=== PATIENT | female | born 1955 | race Caucasian/White ===

== ENCOUNTER 2023-10-06 08:13 | Day surgery (SDC) | payer BC, MEDICAID ==
[2023-10-01 12:58] LABS: BASOPHILS % (AUTO) 0.5 % (0-1); EOSINOPHILS # (AUTO) 0.1 X10'3 (0-0.9); EOSINOPHILS % (AUTO) 1.8 % (0-6); HEMATOCRIT 41.7 % (35.0-45.0); LYMPHOCYTES # (AUTO) 1.8 X10'3 (1.1-4.8); MEAN CORPUSCULAR HGB CONC 33.6 g/dL (33.0-36.5); MEAN CORPUSCULAR VOLUME 89.3 FL (78-98); MEAN PLATELET VOLUME 7.7 FL (7.4-10.4); MONOCYTES # (AUTO) 0.6 X10'3 (0-0.9); NEUTROPHILS # (AUTO) 4.7 X10'3 (1.8-7.7); NEUTROPHILS % (AUTO) 64.7 % (42-75); PLATELET COUNT 200 X10'3 (140-440); RED BLOOD COUNT 4.67 X10'6 (4.20-5.60); RED CELL DISTRIBUTION WIDTH 13.6 % (11.5-14.5); WHITE BLOOD COUNT 7.3 X10'3 (4.5-11.0)
[2023-10-01 13:09] LABS: APTT 27 SECONDS (22-32); PROTHROMBIN TIME 10.5 SECONDS (9.0-12.0)
[2023-10-01 13:11] LABS: ALANINE AMINOTRANSFERASE 24 U/L (12-78); ALBUMIN/GLOBULIN RATIO 1.1 (1.1-1.5); ALKALINE PHOSPHATASE 102 IU/L (46-116); ANION GAP 8 (8-16); ASPARTATE AMINO TRANSFERASE 20 U/L (10-37); BLOOD UREA NITROGEN 24 MG/DL (7-18); BUN/CREATININE RATIO 27.3 (10.0-20.0); CALCIUM 10.3 MG/DL (8.5-10.1); CHLORIDE 107 MMOL/L (99-107); CREATININE 0.88 MG/DL (0.40-0.90); GLUCOSE 82 MG/DL (70-104); POTASSIUM 4.2 MMOL/L (3.5-5.1); SODIUM 141 MMOL/L (135-145); TOTAL PROTEIN 7.6 G/DL (6.4-8.2); eGFR 64 ML/MIN
[2023-10-01 13:13] LABS: BILIRUBIN,URINE NEGATIVE (Neg); CLARITY,URINE CLOUDY (Clear); COLOR,URINE STRAW (Yellow); GLUCOSE, URINE NEGATIVE (Neg); KETONES,URINE NEGATIVE (Neg); LEUKOCYTE ESTERASE ,URINE SMALL (Neg); NITRITES, URINE POSITIVE (Neg); OCCULT BLOOD,URINE SMALL (Neg); PROTEIN,URINE NEGATIVE (Neg); UROBILINOGEN,URINE 0.2 E.U/dL (0.2-1.0)
[2023-10-01 13:34] LABS: UA COLLECTION TYPE CLN CATCH MIDSTREAM
[2023-10-01 15:05] LABS: BACTERIA,URINE 4+ /HPF (Neg); RBC,URINE 20-50 /HPF (0-2); WBC,URINE 20-30 /HPF (0-4)
[2023-10-01 15:06] LABS: MUCUS STRANDS FEW /LPF (Neg); RENAL CELLS, URINE FEW /HPF; TRANSITIONAL EPI CELLS,URINE FEW /HPF; WBC CLUMPS,URINE FEW /HPF (NEGATIVE)
[2023-10-01 15:07] LABS: SQUAMOUS EPITHELIAL CELL,UR FEW /LPF (FEW)
[~2023-10-06] VITALS: Ht 162.6 cm; Wt 92.9 kg
[2023-10-06] VITALS (13 sets, daily range): BP systolic 134–147; BP diastolic 84–96; PULSE 59–79; RESP 11–18; TEMP 98.1; O2SAT 96–100
[2023-10-06] MEDS: cefazolin 2gm/D5W 100mL 100 ML IV ONE (05:30)
[~2023-10-06 08:13] MED LIST: ALEN35TA53 PO; ASCO-356 PO; ATOR40TA72 PO; BIOT10005 PO; BUPR-564 PO; CYAN-116 PO; ELDERBERRY; FLO0.4C PO; GLUCOSAMINE PO; MAGN400T39 PO; OMEG1CAP46 PO; PIOG15TA70 PO; SEMA1.7P SQ; TOLT1TAB13 PO; VITAMIN D 3 PO; ZINC PO
[2023-10-06] MEDS: famotidine 20mg tablet PO ONE (09:07)
[2023-10-06] MEDS: ringers solution, lacted 1,000 ML IV SCH (09:08)
[2023-10-06] MEDS: BUPIVAcaine 2.5mg/ml inj 50ml vial (contains preservative) ONE (11:04)
[2023-10-06] MEDS: bacitracin 15gm ointment TP ONE ×2 (11:04→12:57)
[2023-10-06] MEDS ORDERED: sevoflurane 250ml liquid IH ONE (11:21)
[2023-10-06] MEDS: BUPIVAcaine 2.5mg/ml inj 50ml vial (contains preservative) SQ ONE (11:21)
[2023-10-06] MEDS ORDERED: LIDOcaine 1%/PF 5ML 10 MG/ML VIAL ONE (11:32)
[2023-10-06] MEDS ORDERED: propofol inj 20 ML IV ONE (11:32)
[2023-10-06] MEDS ORDERED: ondansetron/PF 4mg/2ml inj ONE (11:32)
[2023-10-06] MEDS ORDERED: glycopyrrolate 0.2mg/ml inj ONE (12:00)
[2023-10-06] MEDS ORDERED: ringers solution, lacted 1,000 ML IV SCH (12:50)
[2023-10-06] MEDS ORDERED: fentaNYL/PF 50MCG/1 ML 2ML syringe IV PRN (12:50)
[2023-10-06] MEDS ORDERED: labetalol 5mg/ml 20ml inj. IV PRN (12:50)
[2023-10-06] MEDS ORDERED: ondansetron/PF 4mg/2ml inj IV PRN (12:50)
[2023-10-06] MEDS ORDERED: meperidine/PF 25mg/ml syringe IV PRN (12:50)
[2023-10-06] MEDS ORDERED: proCHLORperazine 10 MG/2 ml inj IV PRN (12:50)
[2023-10-06] MEDS ORDERED: HYDROmorphone/PF 0.2 MG/ML SYRINGE IV PRN (12:50)
[2023-10-06] MEDS: acetaminophen 1,000mg/100ml IV 100 ML IV ONE (14:25)
== END 2023-10-06 15:02 | disposition home or self-care (01) ==
LOC: PAS 08:13
PROVIDERS: ATTEND Podiatrist Foot & Ankle Surgery
DX: M20.12 Hallux valgus (acquired), left foot (principal); I10 Essential (primary) hypertension; E11.9 Type 2 diabetes mellitus without complications; E78.5 Hyperlipidemia, unspecified; E66.9 Obesity, unspecified; G47.33 Obstructive sleep apnea (adult) (pediatric); F32.A Depression, unspecified; Z98.890 Other specified postprocedural states; Z68.35 Body mass index [BMI] 35.0-35.9, adult
CPT/HCPCS: 20900; 28297; 28298; 36415; 71045; 73620; 80053; 81001; 82948; 85025; 85610; 85730; 87077; 87088; 87186; 93005; A6222; C1713; J0131; J0690; J2405; J2704; J3490; J7030; J7120; Z7506; Z7508; Z7512; 76000; A4215; A4618; A6253; A6446; A6449; A6455; A7000

== ENCOUNTER 2023-11-17 10:34 | Day surgery (SDC) | payer BC, MEDICAID ==
[2023-11-10 11:45] LABS: BASOPHILS % (AUTO) 0.7 % (0-1); EOSINOPHILS # (AUTO) 0.1 X10'3 (0-0.9); EOSINOPHILS % (AUTO) 2.3 % (0-6); LYMPHOCYTES # (AUTO) 1.8 X10'3 (1.1-4.8); LYMPHOCYTES % (AUTO) 29.2 % (21-51); MEAN CORPUSCULAR HEMOGLOBIN 29.6 PG (27.0-31.0); MEAN CORPUSCULAR HGB CONC 32.8 g/dL (33.0-36.5); MEAN CORPUSCULAR VOLUME 90.3 FL (78-98); MEAN PLATELET VOLUME 7.7 FL (7.4-10.4); MONOCYTES # (AUTO) 0.5 X10'3 (0-0.9); MONOCYTES % (AUTO) 7.7 % (2-12); NEUTROPHILS # (AUTO) 3.8 X10'3 (1.8-7.7); NEUTROPHILS % (AUTO) 60.1 % (42-75); PRE OP HEMATOCRIT 41.6 % (35.0-45.0); PRE OP HEMOGLOBIN 13.6 g/dL (12.0-16.0); PRE OP PLATELET COUNT 206 X10'3 (140-440); PRE OP WHITE BLOOD COUNT 6.3 10'3 (4.8-10.8); RED CELL DISTRIBUTION WIDTH 14.1 % (11.5-14.5)
[2023-11-10 11:53] LABS: ALBUMIN 3.8 G/DL (3.4-5.0); ALKALINE PHOSPHATASE 118 IU/L (46-116); BLOOD UREA NITROGEN 20 MG/DL (7-18); BUN/CREATININE RATIO 24.1 (10.0-20.0); CALCIUM 10.4 MG/DL (8.5-10.1); CHLORIDE 111 MMOL/L (99-107); CREATININE 0.83 MG/DL (0.40-0.90); PRE OP ALT 24 U/L (30-65); PRE OP ANION GAP 6 (8-16); PRE OP AST 15 U/L (10-37); PRE OP BILIRUB, TOTAL 0.6 MG/DL (0.0-1.0); PRE OP GLUCOSE 88 MG/DL (70-104); PRE OP POTASSIUM 4.3 MMOL/L (3.4-5.1); PRE OP SODIUM 144 MMOL/L (135-145); TOTAL CARBON DIOXIDE 27.2 MMOL/L (24-32); TOTAL PROTEIN 7.6 G/DL (6.4-8.2); eGFR 68 ML/MIN
[~2023-11-17] VITALS: Ht 165.1 cm; Wt 95.3 kg
[2023-11-17] VITALS (12 sets, daily range): BP systolic 134–146; BP diastolic 73–90; PULSE 60–78; RESP 12–16; TEMP 98.4; O2SAT 96–100
[2023-11-17] MEDS: cefazolin 2gm/D5W 100mL 100 ML IV ONE (07:19)
[~2023-11-17 10:34] MED LIST changes: +famotidine 20mg tablet PO ONE; +ringers solution, lacted 1,000 ML IV SCH
[2023-11-17] MEDS ORDERED: BUPIVAcaine 2.5mg/ml inj 50ml vial (contains preservative) ONE (11:10)
[2023-11-17] MEDS ORDERED: bacitracin 15gm ointment TP ONE (11:10)
[2023-11-17] MEDS ORDERED: midazolam 1 mg/ML 2ml injection ONE (12:11)
[2023-11-17] MEDS ORDERED: fentaNYL/PF 50MCG/1 ML 2ML syringe ONE (12:11)
[2023-11-17] MEDS ORDERED: dexamethasone sod phosphate 4mg/ml inj. ONE (12:12)
[2023-11-17] MEDS ORDERED: acetaminophen 1,000mg/100ml IV 100 ML IV ONE (12:12)
[2023-11-17] MEDS ORDERED: propofol inj 20 ML IV ONE (12:12)
[2023-11-17] MEDS ORDERED: ondansetron/PF 4mg/2ml inj ONE (12:12)
[2023-11-17] MEDS ORDERED: LIDOcaine 2% (20mg/ml) 5ml vial ONE (12:12)
[2023-11-17] MEDS ORDERED: ringers solution, lacted 1,000 ML IV SCH (12:20)
[2023-11-17] MEDS ORDERED: hydrALAZINE 20mg/ml inj. IV PRN (12:20)
[2023-11-17] MEDS ORDERED: fentaNYL/PF 50MCG/1 ML 2ML syringe IV PRN ×2 (12:20)
[2023-11-17] MEDS ORDERED: morphine 2 MG/ML inj. syringe IV PRN (12:20)
[2023-11-17] MEDS ORDERED: labetalol 20mg/4ml (5mg/ml) syringe IV PRN (12:20)
[2023-11-17] MEDS ORDERED: morphine 4 MG/ML inj SYRINge IV PRN (12:20)
[2023-11-17] MEDS ORDERED: ondansetron/PF 4mg/2ml inj IV PRN (12:20)
[2023-11-17] MEDS ORDERED: sevoflurane 250ml liquid IH ONE (12:40)
[2023-11-17] MEDS: bacitracin 15gm ointment TP ONE (13:37)
== END 2023-11-17 15:54 | disposition home or self-care (01) ==
LOC: PAS 10:34
PROVIDERS: ATTEND Podiatrist Foot & Ankle Surgery
DX: M20.11 Hallux valgus (acquired), right foot (principal); M79.671 Pain in right foot; I10 Essential (primary) hypertension; E11.9 Type 2 diabetes mellitus without complications; E78.5 Hyperlipidemia, unspecified; G89.18 Other acute postprocedural pain; G47.33 Obstructive sleep apnea (adult) (pediatric); F32.A Depression, unspecified; I25.2 Old myocardial infarction; E66.9 Obesity, unspecified; Z87.442 Personal history of urinary calculi; Z86.010 Personal history of colon polyps; Z98.890 Other specified postprocedural states; Z79.899 Other long term (current) drug therapy
CPT/HCPCS: 28270; 28298; 36415; 64450; 73620; 80053; 82948; 85025; 85610; 85730; A6222; C1713; J0131; J0690; J1100; J2250; J2405; J2704; J3010; J3490; J7030; J7120; Z7506; Z7508; Z7512; A4618; A6253; A6446; A6449; A6455; A7000

== ENCOUNTER 2024-03-14 12:49 | Outpatient (CLI) | payer BC, MEDICAID ==
[~2024-03-14] VITALS: Ht 162.6 cm; Wt 99.8 kg
[~2024-03-14 12:49] MED LIST changes: -famotidine 20mg tablet PO ONE; -ringers solution, lacted 1,000 ML IV SCH
[2024-03-14 13:50] LABS: BASOPHILS % (AUTO) 0.7 % (0-1); EOSINOPHILS # (AUTO) 0.1 X10'3 (0-0.9); EOSINOPHILS % (AUTO) 1.5 % (0-6); HEMATOCRIT 41.2 % (35.0-45.0); LYMPHOCYTES # (AUTO) 2.1 X10'3 (1.1-4.8); LYMPHOCYTES % (AUTO) 30.4 % (21-51); MEAN CORPUSCULAR HEMOGLOBIN 29.7 PG (27.0-31.0); MEAN CORPUSCULAR HGB CONC 33.9 g/dL (33.0-36.5); MEAN CORPUSCULAR VOLUME 87.7 FL (78-98); MEAN PLATELET VOLUME 7.5 FL (7.4-10.4); MONOCYTES # (AUTO) 0.6 X10'3 (0-0.9); MONOCYTES % (AUTO) 8.4 % (2-12); NEUTROPHILS # (AUTO) 4.1 X10'3 (1.8-7.7); PLATELET COUNT 239 X10'3 (140-440)
[2024-03-14 13:57] LABS: BILIRUBIN,URINE NEGATIVE (Neg); CLARITY,URINE CLEAR (Clear); COLOR,URINE YELLOW (Yellow); GLUCOSE, URINE NEGATIVE (Neg); KETONES,URINE NEGATIVE (Neg); LEUKOCYTE ESTERASE ,URINE SMALL (Neg); NITRITES, URINE POSITIVE (Neg); OCCULT BLOOD,URINE SMALL (Neg); PROTEIN,URINE NEGATIVE (Neg); UROBILINOGEN,URINE 0.2 E.U/dL (0.2-1.0)
[2024-03-14 14:01] LABS: UA COLLECTION TYPE CLN CATCH MIDSTREAM
[2024-03-14 14:05] LABS: APTT 26 SECONDS (22-32)
[2024-03-14 14:05] LABS: SQUAMOUS EPITHELIAL CELL,UR MODERATE /LPF (FEW); WBC,URINE 50-100 /HPF (0-4)
[2024-03-14 14:06] LABS: BACTERIA,URINE 4+ /HPF (Neg)
[2024-03-14 14:08] LABS: ALANINE AMINOTRANSFERASE 26 U/L (12-78); ALBUMIN 3.9 G/DL (3.4-5.0); ALBUMIN/GLOBULIN RATIO 1.2 (1.1-1.5); ALKALINE PHOSPHATASE 124 IU/L (46-116); ANION GAP 7 (8-16); ASPARTATE AMINO TRANSFERASE 10 U/L (10-37); BILIRUBIN,TOTAL 0.9 MG/DL (0.1-1.0); BLOOD UREA NITROGEN 27 MG/DL (7-18); BUN/CREATININE RATIO 26.7 (10.0-20.0); CALCIUM 10.8 MG/DL (8.5-10.1); CHLORIDE 110 MMOL/L (99-107); CREATININE 1.01 MG/DL (0.40-0.90); GLUCOSE 101 MG/DL (70-104); SODIUM 146 MMOL/L (135-145); TOTAL CARBON DIOXIDE 28.9 MMOL/L (24-32); TOTAL PROTEIN 7.2 G/DL (6.4-8.2); eGFR 55 ML/MIN
[2024-03-14 14:17] LABS: PROTHROMBIN TIME 10.8 SECONDS (9.0-12.0)
[2024-04-05] MEDS ORDERED: ringers solution, lacted 1,000 ML IV SCH (05:30)
[2024-04-05] MEDS ORDERED: ceFAZolin 2gm in dextrose, iso 50 ML IV ONE (05:30)
[2024-04-05] MEDS ORDERED: famotidine 20mg tablet PO ONE (05:30)
== END 2024-03-14 23:59 | disposition home or self-care (01) ==
LOC: LAB 12:49 → EDSTATUS 04-05 08:30
PROVIDERS: ATTEND Podiatrist Foot & Ankle Surgery
DX: T84.84XA Pain due to internal orthopedic prosthetic devices, implants and grafts, initial encounter (principal); M79.671 Pain in right foot; X58.XXXA Exposure to other specified factors, initial encounter; Y84.8 Other medical procedures as the cause of abnormal reaction of the patient, or of later complication, without mention of misadventure at the time of the procedure; Y92.89 Other specified places as the place of occurrence of the external cause
CPT/HCPCS: 36415; 80053; 81001; 85025; 85610; 85730; 87077; 87088; 87186; J0690; J7120